=== PATIENT | male | born 1985 | race Caucasian/White ===

== ENCOUNTER 2017-09-21 10:49 | Emergency (ER) | payer MEDICAID ==
[~2017-09-21] VITALS: Ht 182.9 cm; Wt 69.0 kg
[~2017-09-21 10:49] MED LIST: NO HOME MEDS
[2017-09-21] MEDS ORDERED: HYDR-565 PO (11:58)
[2017-09-21] MEDS ORDERED: PENI500T2 PO (11:58)
[2017-09-21] MEDS ORDERED: IBUP-1984 PO (11:59)
[2017-09-21 12:28] VITALS: BP 121/89
== END 2017-09-21 12:29 | disposition home or self-care (01) ==
LOC: ER 10:49
DX: K02.9 Dental caries, unspecified (principal); Z88.5 Allergy status to narcotic agent; Z79.899 Other long term (current) drug therapy
CPT/HCPCS: 99283

== ENCOUNTER 2018-02-20 07:21 | Emergency (ER) | payer MEDICAID ==
[~2018-02-20] VITALS: Ht 182.9 cm; Wt 67.2 kg
[2018-02-20 07:25] VITALS: BP 113/69
[2018-02-20] MEDS ORDERED: DOXY100C43 PO ×2 (07:43→07:44)
[2018-02-20] MEDS ORDERED: sulfamethoxazole/trimethoprim DS (800/160mg) tablet PO ONE (07:45)
[2018-02-20] MEDS ORDERED: cephalexin 250mg capsule PO ONE (07:45)
== END 2018-02-20 08:07 | disposition home or self-care (01) ==
LOC: ER 07:21
DX: S81.032A Puncture wound without foreign body, left knee, initial encounter (principal); L03.116 Cellulitis of left lower limb; F17.210 Nicotine dependence, cigarettes, uncomplicated; Z88.6 Allergy status to analgesic agent; X58.XXXA Exposure to other specified factors, initial encounter; Y93.89 Activity, other specified; Y92.89 Other specified places as the place of occurrence of the external cause; Y99.8 Other external cause status
CPT/HCPCS: 99283

== ENCOUNTER 2018-05-09 16:41 | Emergency (ER) | payer MEDICAID ==
[~2018-05-09] VITALS: Ht 182.9 cm; Wt 62.4 kg
[2018-05-09 16:44] VITALS: BP 128/77
[2018-05-09] MEDS ORDERED: PENI250T2 PO (16:49)
[2018-05-09] MEDS ORDERED: NAPR-996 PO (16:49)
== END 2018-05-09 16:59 | disposition home or self-care (01) ==
LOC: ER 16:42
DX: K08.89 Other specified disorders of teeth and supporting structures (principal); Z88.5 Allergy status to narcotic agent; Z79.899 Other long term (current) drug therapy
CPT/HCPCS: 99283

== ENCOUNTER 2018-11-07 15:03 | Emergency (ER) | payer MEDICAID ==
[~2018-11-07] VITALS: Ht 177.8 cm; Wt 60.0 kg
[~2018-11-07 15:03] MED LIST changes: +NAPR-996 PO
[2018-11-07 15:17] VITALS: BP 136/96
== END 2018-11-07 15:49 | disposition home or self-care (01) ==
LOC: ER 15:03
DX: S00.81XA Abrasion of other part of head, initial encounter (principal); L98.9 Disorder of the skin and subcutaneous tissue, unspecified; Z88.5 Allergy status to narcotic agent; Z79.899 Other long term (current) drug therapy; X58.XXXA Exposure to other specified factors, initial encounter; Y93.9 Activity, unspecified; Y92.89 Other specified places as the place of occurrence of the external cause; Y99.8 Other external cause status
CPT/HCPCS: 99281

== ENCOUNTER 2020-06-29 16:07 | Emergency (ER) | payer MEDICAID ==
[~2020-06-29] VITALS: Ht 182.9 cm; Wt 68.2 kg
[2020-06-29] MEDS ORDERED: LIDOcaine 1% 30ml preserv. free vial IJ ONE (16:25)
[2020-06-29] MEDS ORDERED: TETanus/Pertussis (Acell)/Diphther VAC/PF (Tdap-Adult) 0.5ml syringe IMVAC ONE (16:25)
[2020-06-29] MEDS ORDERED: sulfamethoxazole/trimethoprim DS (800/160mg) tablet PO ONE (17:10)
[2020-06-29] MEDS ORDERED: cephalexin 250mg capsule PO ONE (17:10)
[2020-06-29 17:28] VITALS: BP 118/72
[2020-06-29] MEDS ORDERED: SULF1TAB49 PO (17:30)
[2020-06-29] MEDS ORDERED: CEPH-585 PO (17:30)
== END 2020-06-29 17:39 | disposition home or self-care (01) ==
LOC: ER 16:07
DX: L02.512 Cutaneous abscess of left hand (principal); Z72.89 Other problems related to lifestyle; Z88.5 Allergy status to narcotic agent; Z79.899 Other long term (current) drug therapy
CPT/HCPCS: 10060; 87070; 87077; 87186; 90471; 90715; 99283

== ENCOUNTER 2020-08-04 13:45 | Emergency (ER) | payer MEDICAID ==
[~2020-08-04] VITALS: Ht 182.9 cm; Wt 68.2 kg
[2020-08-04 14:24] VITALS: BP 134/84
[2020-08-04] MEDS ORDERED: CEPH250T PO (14:58)
[2020-08-04] MEDS ORDERED: SULF1TAB45 PO (14:58)
--- NOTE | 2020-08-04 15:13 | NUR ---
PT'S UPPER LIP SWOLLEN, AIRWAY IS PATENT
== END 2020-08-04 15:17 | disposition home or self-care (01) ==
LOC: ER 13:45
DX: K13.0 Diseases of lips (principal); L02.511 Cutaneous abscess of right hand; Z79.899 Other long term (current) drug therapy; Z79.2 Long term (current) use of antibiotics; Z72.89 Other problems related to lifestyle; Z88.8 Allergy status to other drugs, medicaments and biological substances; R22.9 Localized swelling, mass and lump, unspecified
CPT/HCPCS: 99283

== ENCOUNTER 2020-10-14 11:12 | Emergency (ER) | payer MEDICAID ==
[~2020-10-14] VITALS: Ht 182.9 cm; Wt 60.7 kg
[2020-10-14] MEDS ORDERED: LIDOcaine 1% W/epiNEPHrine 1:200,000 10ml vial IJ ONE (11:40)
[2020-10-14] MEDS ORDERED: IBUP-1984 PO (11:52)
[2020-10-14] MEDS ORDERED: DOXY100C43 PO (11:52)
[2020-10-14 11:56] VITALS: BP 157/109
--- NOTE | 2020-10-14 11:58 | NUR ---
2 CM INDURATED LESION LEFT SUPRA ORBITAL FACE: FOREHEAD
== END 2020-10-14 12:20 | disposition home or self-care (01) ==
LOC: ER 11:13
DX: L02.01 Cutaneous abscess of face (principal); Z72.89 Other problems related to lifestyle; Z88.5 Allergy status to narcotic agent; Z79.2 Long term (current) use of antibiotics; Z79.899 Other long term (current) drug therapy
CPT/HCPCS: 10060; 99283